=== PATIENT | female | born 1990 | race Caucasian/White ===

== ENCOUNTER 2020-10-06 08:24 | Outpatient (CLI) | payer OTHER, SELFPAY | END 2020-10-06 10:00 | disposition home or self-care (01) | LOC: WPOUT 08:32 → WP 08:33 | PROVIDERS: Referring Provider Advanced Practice Midwife; Visit Provider Advanced Practice Midwife | DX: R63.3 Feeding difficulties (principal) | CPT/HCPCS: 96158; 96159 ==